=== PATIENT | male | born 1960 | race Caucasian/White ===

== ENCOUNTER 2017-11-28 12:35 | Emergency (ER) | payer OTHER ==
[2017-11-28 12:46] VITALS: RESP 18; TEMP 98.7
[2017-11-28] MEDS ORDERED: methylPREDNISolone SOD SUCCI 125 MG/2 ML VIAL IV STA (13:21)
[2017-11-28] MEDS ORDERED: FAMOTIDINE 20 MG/2 ML VIAL IV STA (13:22)
--- NOTE | 2017-11-28 13:48 | ED ---
General Adult HPI - General Chief complaint: Allergic Reaction Stated complaint: Insect Bite/Allergic reaction Time Seen by Provider: 11/28/17 12:42 Source: patient, RN notes reviewed Mode of arrival: ambulatory Limitations: no limitations - History of Present Illness Initial comments: 57-year-old male presents to the emergency department for a chief complaint of bee sting under the right eye at about 10:30 this morning or about 3 hours ago. 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 Patient states he has not had repeat anaphylactic reactions with stings. Patient states he was stung by a yellow jacket and he is more ALLERGIC to honey bees. Patient states he went to [facility] and was given epinephrine and an ambulance was called. Patient denies shortness of breath at the clinic. Patient states he may have become somewhat short of breath in the ambulance because they put oxygen on him. Patient was also given Benadryl in the ambulance. He is feeling much better at this time. Patient denies any shortness of breath, swelling of the lips tongue or throat, or difficulty breathing. Patient denies chest pain. Patient states he is ready to go home and is not currently having any symptoms.Patient has no other complaints at this time including shortness of breath, chest pain, abdominal pain, nausea or vomiting, headache, or visual changes. - Related Data Home Medications Medication Instructions Recorded Confirmed Aspirin EC [Ecotrin Low Dose] 81 mg PO DAILY 11/28/17 11/28/17 Cyanocobalamin (Vitamin B-12) 1,000 mcg PO DAILY 11/28/17 11/28/17 [Vitamin B-12] Fish Oil/Dha/Epa [Fish Oil 1,200 1 cap PO BID 11/28/17 11/28/17 mg Fish Oil] Glucosamine/Chondr Sandra A Sod [Osteo 1 tab PO BID 11/28/17 11/28/17 Bi-Flex Caplet] Multivit-Min/FA/Lycopen/Lutein 1 tab PO DAILY 11/28/17 11/28/17 [Centrum Silver Men Tablet] Omeprazole 20 mg PO DAILY 11/28/17 11/28/17 Vitamin C/Biotin [Hair, Skin and 1 tab PO DAILY 11/28/17 11/28/17 Nails] amLODIPine BESYLATE/BENAZEPRIL 1 cap PO DAILY 11/28/17 11/28/17 [amLODIPine BESYLATE/BENAZEPRIL 5-20 mg] Previous Rx's Medication Instructions Recorded EPINEPHrine [Epipen 2-Aquiles] 0.3 mg IM ONCE PRN #2 injection 11/28/17 predniSONE 50 mg PO DAILY #5 tablet 11/28/17 Allergies Allergy/AdvReac Type Severity Reaction Status Date / Time bee venom protein (honey bee) Allergy Unknown Verified 11/28/17 12:53 Penicillins Allergy Unknown Verified 11/28/17 12:53 Review of Systems ROS Statement: Those systems with pertinent positive or pertinent negative responses have been documented in the HPI. ROS Other: All systems not noted in ROS Statement are negative. Past Medical History Past Medical History: Hypertension History of Any Multi-Drug Resistant Organisms: None Reported Past Surgical History: Tonsillectomy Past Psychological History: No Psychological Hx Reported Smoking Status: Current every day smoker Past Alcohol Use History: Occasional Past Drug Use History: Marijuana General Exam Limitations: no limitations General appearance: alert, in no apparent distress Head exam: Present: atraumatic, normocephalic, normal inspection Eye exam: Present: normal appearance, PERRL, EOMI, periorbital swelling (mild swelling inferior to the right orbit). Absent: scleral icterus, conjunctival injection ENT exam: Present: normal exam, normal oropharynx, mucous membranes moist, TM's normal bilaterally, normal external ear exam Neck exam: Present: normal inspection, full ROM. Absent: tenderness, meningismus, lymphadenopathy Respiratory exam: Present: normal lung sounds bilaterally. Absent: respiratory distress, wheezes, rales, rhonchi, stridor Cardiovascular Exam: Present: regular rate, normal rhythm, normal heart sounds. Absent: systolic murmur, diastolic murmur, rubs, gallop, clicks Neurological exam: Present: alert, oriented X3, CN II-XII intact Psychiatric exam: Present: normal affect, normal mood Course Vital Signs 11/28/17 11/28/17 12:40 13:37 Temperature 98.7 F Pulse Rate 99 96 Respiratory 18 18 Rate Blood Pressure 137/86 117/86 O2 Sat by Pulse 96 95 Oximetry Medical Decision Making - Medical Decision Making 57-year-old male presents to the emergency department for a chief complaint of bee sting 3 hours. Patient states he has had an anaphylactic reaction in the past when he was stung by multiple bees about 40 years ago. Patient has not had any other anaphylactic reactions. Patient was given epinephrine at [facility] and Benadryl in the ambulance. Vitals within normal limits. At this time patient denies any chest pain shortness of breath swelling of the lips tongue or throat. He states he is feeling much better. Patient was given IV steroids and Pepcid. He has absolutely no symptoms at this time and is ready to go home. Patient will be discharged home with prednisone and will follow up with primary care in 1-2 days. He was also given a prescription for appendectomy pends since at this time we cannot rule out anaphylaxis as [facility] for the ones to see him initially and gave him epinephrine. Patient aware to return to the emergency department if he has any worsening symptoms. Disposition Clinical Impression: Allergic reaction Disposition: HOME SELF-CARE Condition: Good Instructions: General Allergic Reaction (ED) Additional Instructions: Please take steroid for the next 5 days as directed. Please take Benadryl as needed [id number]. Follow-up with primary care in 1-2 days. Return to the emergency department if you have any worsening symptoms, difficulty breathing, or swelling of the lips tongue or throat Prescriptions: EPINEPHrine [Epipen 2-Aquiles] 0.3 mg IM ONCE PRN #2 injection PRN Reason: Anaphylaxis predniSONE 50 mg PO DAILY #5 tablet Is patient prescribed a controlled substance at d/c from ED?: No Referrals: Deann Coronado MD [Primary Care Provider] - 1-2 days Time of Disposition: 13:46
[2017-11-28 15:04] VITALS: BP 120/80; PULSE 90
== END 2017-11-28 15:00 | disposition home or self-care (01) ==
LOC: EC 12:35
DX: T78.40XA Allergy, unspecified, initial encounter (principal); I10 Essential (primary) hypertension; F17.200 Nicotine dependence, unspecified, uncomplicated; Z79.82 Long term (current) use of aspirin; Z79.899 Other long term (current) drug therapy; Z88.0 Allergy status to penicillin; Z91.030 Bee allergy status
CPT/HCPCS: 99284; 96374; 96375; J2930